=== PATIENT | female | born 1945 | race Caucasian/White ===

== ENCOUNTER → 2016-11-05 | Outpatient (CLI) | payer MEDICARE, BC ==
[~2016-11-05] MED LIST: ASP81TEC PO; CALC1CAP19 PO; DULO60CA6 PO; GLUC-138 PO; MELA1TAB11 PO; PRIM50TA26 PO; SIMV20TA3 PO; SOLI10TA4 PO; TRAZ150T42 PO; TRZ100T PO; ZLP10T PO; ZLP5T PO; [UNRECOGNIZED DRUG - OTHER] PO; calcium + D; glucosamine
--- NOTE | 2016-11-06 19:23 | Diagnostic Imaging Report ---
Bilateral screening mammogram The current study was also evaluated with a Computer Aided Detection (CAD) system. INDICATION: Screening. No current complaints stated on the questionnaire. COMPARISON: 08/20/15. FINDINGS: The breasts are composed of scattered fibroglandular densities. There are occasional benign-appearing calcifications. Allowing for technique and positional differences, no suspicious change is seen. IMPRESSION: No significant change. ACR BI-RADS Category 2: Benign findings. Result letter will be mailed to the patient. Note: At least 10% of breast cancer is not imaged by mammography. Dictated by: Dictated on workstation # [id number]
== END ==
LOC: RAD 11:05
PROVIDERS: ATTEND Family Medicine
DX: Z12.31 Encounter for screening mammogram for malignant neoplasm of breast (principal)
CPT/HCPCS: 77067

== ENCOUNTER → 2017-01-22 | Outpatient (CLI) | payer MEDICARE, BC ==
--- NOTE | 2017-01-22 15:43 | Diagnostic Imaging Report ---
PROCEDURE: MRI right joint upper extremity without contrast. TECHNIQUE: Multiplanar, multisequence non contrast-enhanced MRI of the right upper extremity was accomplished. INDICATION: Right shoulder pain. FINDINGS: There is no os acromiale or Hill-Sachs deformity. There is acromioclavicular joint arthropathy with inferior osteophytes and subchondral edema seen. There is mild fluid distention of the subacromial/subdeltoid bursa. The infraspinatus demonstrates high-grade partial tears with near full-thickness tear seen in its posterior fibers. The supraspinatus tendon demonstrates partial tears posteriorly and a full-thickness tear anteriorly. This is associated with 8 mm retraction. The long head biceps tendon is within its groove. The subscapularis tendon appears grossly unremarkable. The posterior aspect of the superior labrum and the anterior-inferior aspect demonstrates mild irregularity. This however is not a study with intra-articular contrast which would better evaluate the labrum. These could be degenerative related changes. There is a tiny joint effusion. There is the suggestion of mild thinning of the cartilage of the glenohumeral joint. Mild marrow cystic changes in the humeral head near the rotator cuff insertion is seen. There is no significant muscle atrophy around the shoulder. IMPRESSION: 1. High grade tears in the supraspinatus and infraspinatus tendons. There is a full-thickness tear component in the anterior fibers of the supraspinatus with an 8 cm retraction. 2. AC joint osteoarthritis with inferior osteophytes. Dictated by: Dictated on workstation # [id number]
== END ==
LOC: RAD 11:43
PROVIDERS: ATTEND Orthopaedic Surgery
DX: M75.121 Complete rotator cuff tear or rupture of right shoulder, not specified as traumatic (principal); M19.011 Primary osteoarthritis, right shoulder
CPT/HCPCS: 73221

== ENCOUNTER 2017-06-24 12:52 | Outpatient (RCR) | payer MEDICARE, BC | END 2017-06-24 13:50 | disposition home or self-care (01) | PROVIDERS: ATTEND Orthopaedic Surgery | DX: M25.511 Pain in right shoulder (principal); Z98.890 Other specified postprocedural states ==

== ENCOUNTER → 2017-06-27 | Outpatient (CLI) | payer MEDICARE, BC ==
[2017-06-27 14:41] LABS: BASOPHILS # (AUTO) 0.1 10^3/uL (0.0-0.1); BASOPHILS % (AUTO) 1 % (0-10); EOSINOPHILS # (AUTO) 0.5 10^3/uL (0.0-0.3); EOSINOPHILS % (AUTO) 7 % (0-10); HEMATOCRIT 39 % (35-52); HEMOGLOBIN 13.3 G/DL (11.5-16.0); LYMPHOCYTES # (AUTO) 2.4 X 10^3 (1.0-4.0); LYMPHOCYTES % (AUTO) 37 % (12-44); MEAN CORPUSCULAR HEMOGLOBIN 32 PG (25-34); MEAN CORPUSCULAR HGB CONC 34 G/DL (32-36); MEAN CORPUSCULAR VOLUME 95 FL (80-99); MEAN PLATELET VOLUME 9.7 FL (7.4-10.4); MONOCYTES # (AUTO) 0.7 X 10^3 (0.0-1.0); MONOCYTES % (AUTO) 11 % (0-12); NEUTROPHILS # (AUTO) 2.8 X 10^3 (1.8-7.8); NEUTROPHILS % (AUTO) 44 % (42-75); PLATELET COUNT 270 10^3/uL (130-400); RED BLOOD COUNT 4.17 10^6/uL (4.35-5.85); RED CELL DISTRIBUTION WIDTH 13.2 % (10.0-14.5); WHITE BLOOD COUNT 6.4 10^3/uL (4.3-11.0)
[2017-06-27 14:56] LABS: URIC ACID 4.7 MG/DL (2.6-7.2)
[2017-06-27 15:22] LABS: ERYTHROCYTE SEDIMENTATION RATE 10 MM/HR (0-30)
== END ==
LOC: LAB 14:16
PROVIDERS: ATTEND Orthopaedic Surgery
DX: M25.50 Pain in unspecified joint (principal)
CPT/HCPCS: 36415; 84550; 85025; 85652; 86038; 86141; 86200; 86430

== ENCOUNTER → 2017-07-20 | Outpatient (CLI) | payer MEDICARE, BC ==
--- NOTE | 2017-07-20 15:04 | Diagnostic Imaging Report ---
CLINICAL INDICATION: Patient states she has right-sided neck pain. Patient has history of right shoulder surgery. Main complaint is inability to close her right hand ever since shoulder surgery. EXAM: MRI of the cervical spine performed without IV contrast. Sequences include sagittal T1, sagittal T2, sagittal T2 fat-sat, and axial T2. COMPARISON: None. FINDINGS: Limited visualization of the posterior fossa shows no significant abnormality. Cervical spinal cord has normal cord caliber and no abnormal signal. There is no significant paraspinal soft tissue abnormality. There are small degenerative spurs involving the cervical spine. There is a small amount of Modic type II degenerative signal changes involving the C5-C6 level. C1-C2: Unremarkable. C2-C3: There is mild ligamentum flavum buckling and minimal-sized posterior disc bulge. There is a small focal annular tear posteriorly. There is mild central canal narrowing. There is no significant neural foramen narrowing. C3-C4: There is grade 1 anterolisthesis of C3 on C4. There is mild bilateral facet arthropathy. There is at least moderate left neural foramen narrowing and no significant right neural foramen narrowing. There is moderate central canal narrowing. C4-C5: There are small posterior spurs, moderate left facet arthropathy, and mild right facet arthropathy. There is omas-cq-zqpzdciy bilateral neural foramen narrowing. There is moderate central canal narrowing. C5-C6: There are small broad posterior disc spurs with small bilateral uncinate spurs. There is mild loss of intervertebral disc height posteriorly. There is txuadegh-wq-xyyltd central canal narrowing and severe bilateral neural foramen narrowing. C6-C7: There is ligamentum flavum buckling and mild diffuse disc bulge. There is severe central canal narrowing. There is at least moderate bilateral neural foramen narrowing. C7-T1: There is mild bilateral facet arthropathy. There is a small posterior vertebral body disc bulge. There is mild right neural foramen narrowing. There is no significant central spinal canal or left neural foramen narrowing. IMPRESSION: 1: There is multilevel cervical spine degenerative disc disease with severe changes at the C5-C6 and C6-C7 levels. This is described in detail above. 2: There is grade 1 anterolisthesis of C3 on C4. Dictated by: Dictated on workstation # [id number]
== END ==
LOC: RAD 13:51
PROVIDERS: ATTEND Nurse Practitioner Family
DX: M48.03 Spinal stenosis, cervicothoracic region (principal); M43.12 Spondylolisthesis, cervical region; M46.93 Unspecified inflammatory spondylopathy, cervicothoracic region; M50.13 Cervical disc disorder with radiculopathy, cervicothoracic region; Z98.890 Other specified postprocedural states
CPT/HCPCS: 72141

== ENCOUNTER 2017-09-14 14:11 | Outpatient (RCR) | payer MEDICARE, BC | END 2017-10-22 | disposition home or self-care (01) | PROVIDERS: ATTEND Orthopaedic Surgery | DX: M48.02 Spinal stenosis, cervical region (principal) ==

== ENCOUNTER → 2017-11-17 | Outpatient (CLI) | payer MEDICARE, BC ==
--- NOTE | 2017-11-17 18:50 | Diagnostic Imaging Report ---
INDICATION: Routine screening. Comparison is made with prior mammograms from 11/05/2016 and 08/20/2015. 2-D and 3-D bilateral screening mammography was performed with CAD. The current study was also evaluated with a Computer Aided Detection (CAD) system. FINDINGS: Scattered fibronodular densities are identified bilaterally. No dominant mass or malignant-appearing microcalcifications are seen. There are benign-appearing parenchymal and vascular calcifications bilaterally. The axillae are unremarkable. IMPRESSION: No mammographic features suspicious for malignancy are identified. ACR BI-RADS Category 2: Benign findings. Result letter will be mailed to the patient. Note: At least 10% of breast cancer is not imaged by mammography. Dictated by: Dictated on workstation # [id number]
== END ==
LOC: RAD 12:29
PROVIDERS: ATTEND Family Medicine
DX: Z12.31 Encounter for screening mammogram for malignant neoplasm of breast (principal)
CPT/HCPCS: 77067

== ENCOUNTER 2017-11-27 09:36 | Outpatient (RCR) | payer MEDICARE, BC | END 2017-12-31 14:47 | disposition home or self-care (01) | PROVIDERS: ATTEND Neurological Surgery | DX: R29.898 Other symptoms and signs involving the musculoskeletal system (principal) ==

== ENCOUNTER 2018-02-03 12:59 | Outpatient (RCR) | payer MEDICARE, BC | END 2018-03-26 15:29 | disposition home or self-care (01) | PROVIDERS: ATTEND Nurse Practitioner | DX: R53.83 Other fatigue (principal); M54.2 Cervicalgia ==

== ENCOUNTER → 2018-12-04 | Outpatient (CLI) | payer MEDICARE, BC ==
--- NOTE | 2018-12-04 09:41 | Diagnostic Imaging Report ---
PROCEDURE: MRI lumbar spine. TECHNIQUE: Multiplanar, multisequence MRI of the lumbar spine was performed without contrast. INDICATION: Back pain. COMPARISON: MRI lumbar spine without contrast 12/05/2013. FINDINGS: There are 5 lumbar type vertebral bodies for the purposes of this report. Minimal anterolisthesis of L4 on L5. Alignment is otherwise unremarkable. Vertebral body heights preserved. Normal bone marrow signal. No abnormal signal in the conus which terminates at L2. No substantial spinal canal or lateral recess narrowing. No substantial neural foraminal narrowing. Mild facet arthropathy. The visualized abdominal and pelvic contents are unremarkable. S2 Tarlov cyst measures up to 1.1 cm. IMPRESSION: Mild spondylotic changes in the lumbar spine result in no substantial neural impingement. No acute osseous findings. Dictated by: Dictated on workstation # [id number]
== END ==
LOC: RAD 08:21
PROVIDERS: ATTEND Physician Assistant
DX: M47.816 Spondylosis without myelopathy or radiculopathy, lumbar region (principal)
CPT/HCPCS: 72148

== ENCOUNTER 2019-02-21 15:08 | Outpatient (RCR) | payer MEDICARE, BC | END 2019-03-02 | disposition home or self-care (01) | LOC: CR3 15:08 | PROVIDERS: ATTEND Family Medicine | DX: Z29.8 Encounter for other specified prophylactic measures (principal) ==

== ENCOUNTER 2019-04-21 13:36 | Outpatient (RCR) | payer MEDICARE, BC | END 2019-04-22 08:27 | disposition home or self-care (01) | PROVIDERS: ATTEND Physical Medicine & Rehabilitation | DX: M54.16 Radiculopathy, lumbar region (principal) ==

== ENCOUNTER 2019-05-23 13:19 | Outpatient (RCR) | payer MEDICARE, BC | END 2019-05-29 | disposition home or self-care (01) | LOC: CR3 13:19 | PROVIDERS: ATTEND Family Medicine | DX: Z29.8 Encounter for other specified prophylactic measures (principal) ==

== ENCOUNTER 2019-06-02 05:37 | Outpatient (CLI) | payer MEDICARE, BC ==
[~2019-06-02] VITALS: Ht 167 cm; Wt 77.2 kg
[2019-06-02] MEDS ORDERED: VIT1CAPS44 PO (10:28)
[2019-06-02] MEDS ORDERED: ASPI-586 PO (10:40)
[2019-06-02] MEDS ORDERED: OLME5TAB3 PO (10:40)
[2019-06-02] MEDS ORDERED: QUET50TA55 PO (10:40)
[2019-06-02] MEDS ORDERED: PRIM250T33 PO (10:40)
[2019-06-02] MEDS ORDERED: MULT-1029 PO (10:40)
[2019-06-02] MEDS ORDERED: TOLT4CAP13 PO (10:40)
[2019-06-02] MEDS ORDERED: GLUC1CAP37 PO (10:40)
[2019-06-02] MEDS ORDERED: DESM0.2T29 PO (10:40)
[2019-06-02] MEDS ORDERED: SERT50TA9 PO (10:40)
[2019-06-02] MEDS ORDERED: TRAZ-190 PO (10:40)
[2019-06-02] MEDS ORDERED: MAGN400T39 PO (10:40)
[2019-06-02] MEDS ORDERED: OMG1KC PO (10:40)
== END 2019-06-02 10:42 | disposition home or self-care (01) ==
LOC: PREOP 05:37
PROVIDERS: ATTEND Pediatrics
DX: Z01.818 Encounter for other preprocedural examination (principal)

== ENCOUNTER 2019-06-16 07:44 | Day surgery (SDC) | payer MEDICARE, BC ==
[2019-06-16] VITALS (14 sets, daily range): BP systolic 114–143; BP diastolic 57–77
[~2019-06-16] VITALS: Ht 167 cm; Wt 77.2 kg
[~2019-06-16 07:44] MED LIST changes: +ASPI-586 PO; +DESM0.2T29 PO; +GLUC1CAP37 PO; +MAGN400T39 PO; +MULT-1029 PO; +NS IV 500 ML 500 ML ONE; +OLME5TAB3 PO; +OMG1KC PO; +PRIM250T33 PO; +QUET50TA55 PO; +SERT50TA9 PO; +TOLT4CAP13 PO; +TRAZ-190 PO; +VIT1CAPS44 PO
[2019-06-16] MEDS ORDERED: NS IV 500 ML 500 ML IV PRN (07:51)
[2019-06-16] MEDS ORDERED: fentaNYL INJECTION 100 MCG/2 ML AMP IVP ONE (08:00)
[2019-06-16] MEDS ORDERED: MIDAZOLAM 5 MG/5 ML (VERSED) VIAL IV PRN (08:00)
[2019-06-16] MEDS ORDERED: fentaNYL INJECTION 100 MCG/2 ML AMP ONE (08:17)
[2019-06-16] MEDS ORDERED: MIDAZOLAM 5 MG/5 ML (VERSED) VIAL ONE (08:17)
--- NOTE | 2019-06-16 08:23 | Progress Note-Pre Operative ---
Pre-Operative Progress Note H&P Reviewed The H&P was reviewed, patient examined and no changes noted. Date Seen by Provider: Jun 16, 2019 Time Seen by Provider: 08:22 Date H&P Reviewed: Jun 16, 2019 Time H&P Reviewed: 08:22 Pre-Operative Diagnosis: NORI Valencia MD Jun 16, 2019 08:23
--- NOTE | 2019-06-16 08:45 | Endoscopy Procedure Report ---
Colonoscopy Procedure Performed: Colonoscopy Pre-Operative Diagnosis: screen Post-Operative Diagnosis: screen Small Machine Bindery Operator: None. Indications for Procedure: screen Procedure Details: Informed consent was obtained, the risks, benefits and alternatives to the procedure were explained to the patient. The Sherly Mcclellan, a 74 yr old female, was brought to to surgery area, sedated with 2 mg of Versed and 100 ug of fentanyl. She was placed in the left lateral decubitus position. Under direct visualization the scope was passed easily to the cecum. Cecum is identified by landmarks. Scope was carefully withdrawn. Findings: Ascending Colon: nonenon Transverse Colon: e Descending/Sigmoid: none Rectum: none Estimated Blood Loss: 0 mL Specimens: none Complications: None; patient tolerated the procedure well. Final Diagnosis: large amounts retianed liquid stool so visulaized approx 75 % of colonic surface with no visible polyps or masses NORI GRANADOS MD Jun 16, 2019 08:45
== END 2019-06-16 09:40 | disposition home or self-care (01) ==
LOC: ENDO 07:44
PROVIDERS: ATTEND Pediatrics
DX: Z12.11 Encounter for screening for malignant neoplasm of colon (principal); K59.09 Other constipation; I10 Essential (primary) hypertension; E78.00 Pure hypercholesterolemia, unspecified; G89.29 Other chronic pain; M54.9 Dorsalgia, unspecified; M19.90 Unspecified osteoarthritis, unspecified site; M79.10 Myalgia, unspecified site; F51.01 Primary insomnia; F32.4 Major depressive disorder, single episode, in partial remission; F41.9 Anxiety disorder, unspecified

== ENCOUNTER 2019-06-20 16:06 | Outpatient (RCR) | payer MEDICARE, BC ==
[~2019-06-20 16:06] MED LIST changes: -NS IV 500 ML 500 ML ONE
== END 2019-06-29 | disposition home or self-care (01) ==
LOC: CR3 16:06
PROVIDERS: ATTEND Family Medicine
DX: Z29.8 Encounter for other specified prophylactic measures (principal)

== ENCOUNTER 2019-08-22 13:36 | Outpatient (RCR) | payer MEDICARE, BC ==
[~2019-08-22 13:36] MED LIST changes: -TRAZ-190 PO; +TRAZ-227 PO
== END 2019-08-31 | disposition home or self-care (01) ==
LOC: CR3 13:36
PROVIDERS: ATTEND Family Medicine
DX: Z29.8 Encounter for other specified prophylactic measures (principal)

== ENCOUNTER → 2020-01-16 | Outpatient (CLI) | payer MEDICARE, BC ==
--- NOTE | 2020-01-16 13:09 | Diagnostic Imaging Report ---
INDICATION: Routine screening. Comparison is made with prior mammogram from 12/20/2018 and 11/17/2017. 2-D and 3-D bilateral screening mammography was performed with CAD. Scattered fibroglandular densities are identified bilaterally. There are occasional benign parenchymal and basilar calculations bilaterally. There is a density in the upper aspect of the right breast on the MLO view posterior depth. This may be laterally located on the cc view. Additional views are recommended. Left breast is unremarkable. No suspicious microcalcifications are seen. Axillae are unremarkable. IMPRESSION: BI-RADS Category 0 Right breast density. Additional views are recommended for further evaluation. ACR BI-RADS Category 0: Incomplete. (Needs additional imaging evaluation). Result letter will be mailed to the patient. Note: At least 10% of breast cancer is not imaged by mammography. Dictated by: Dictated on workstation # [id number]
== END ==
LOC: RAD 10:49
PROVIDERS: ATTEND Pediatrics
DX: Z12.31 Encounter for screening mammogram for malignant neoplasm of breast (principal); R92.8 Other abnormal and inconclusive findings on diagnostic imaging of breast
CPT/HCPCS: 77063; 77067

== ENCOUNTER 2020-02-17 11:18 | Outpatient (RCR) | payer MEDICARE, BC | END 2020-02-26 | disposition home or self-care (01) | PROVIDERS: ATTEND Pediatrics | DX: S32.119D Unspecified Zone I fracture of sacrum, subsequent encounter for fracture with routine healing (principal); M79.606 Pain in leg, unspecified; M54.30 Sciatica, unspecified side ==

== ENCOUNTER 2020-04-20 13:36 | Outpatient (RCR) | payer MEDICARE, BC | END 2020-06-13 | disposition home or self-care (01) | PROVIDERS: ATTEND Pediatrics | DX: S32.119D Unspecified Zone I fracture of sacrum, subsequent encounter for fracture with routine healing (principal); M79.606 Pain in leg, unspecified; M54.30 Sciatica, unspecified side ==

== ENCOUNTER 2020-06-25 15:21 | Outpatient (RCR) | payer MEDICARE, BC | END 2020-07-11 11:57 | disposition home or self-care (01) | PROVIDERS: ATTEND Pediatrics | DX: S32.10XA Unspecified fracture of sacrum, initial encounter for closed fracture (principal); W17.89XA Other fall from one level to another, initial encounter ==

== ENCOUNTER 2020-09-25 13:00 | Outpatient (CLI) | payer MEDICARE, BC ==
[~2020-09-25] VITALS: Ht 167.7 cm; Wt 86.4 kg
[~2020-09-25 13:00] MED LIST changes: +QUET50TA22 PO; -QUET50TA55 PO; +SERT-413 PO; -SERT50TA9 PO
[2020-09-25] MEDS ORDERED: AMLO-250 PO (14:32)
[2020-09-25] MEDS ORDERED: ASPI-999 PO (14:32)
[2020-09-25] MEDS ORDERED: SIMV20TA26 PO (14:32)
== END 2020-09-25 14:35 | disposition home or self-care (01) ==
LOC: PREOP 13:00
PROVIDERS: ATTEND Specialist
DX: Z01.818 Encounter for other preprocedural examination (principal)

== ENCOUNTER 2020-09-28 09:45 | Day surgery (SDC) | payer MEDICARE, BC ==
[~2020-09-28] VITALS: Ht 167 cm; Wt 86.4 kg
[~2020-09-28 09:45] MED LIST changes: +AMLO-250 PO; +ASPI-999 PO; +SIMV20TA26 PO
[2020-09-28] MEDS ORDERED: POVIDONE (BETADINE) OPHTH SOLN 5% 30 ML OP ONE (10:00)
[2020-09-28] MEDS ORDERED: TIMOLOL MALEATE 0.5% 5 ML (TIMOPTIC) BTL OU PRN (10:00)
[2020-09-28] MEDS ORDERED: LIDOCAINE PF 1% 2 ML VIAL IR PRN (10:00)
[2020-09-28] MEDS ORDERED: MOXIFLOXACIN OPHTH SOLN 5 MG/ML 0.3 ML SYRINGE OP ONE (10:00)
[2020-09-28 10:05] VITALS: BP 139/64
[2020-09-28] MEDS: TETRACAINE 0.5% OPHTH SOLN 4 ML BTL (SINGLE DOSE ONLY) OU PRN ×4 (10:07→10:33)
[2020-09-28] MEDS: PHENYLEPHRINE 10% OPHTH (NEO-SYN) 5 ML BTL OU SCH ×3 (10:20→10:34)
[2020-09-28] MEDS: TROPICAMIDE 1% OPH SOLN (MYDRIACYL) 15 ML BTL OP SCH ×3 (10:20→10:34)
--- NOTE | 2020-09-28 10:48 | Ophthalmologist Pre-Op Note ---
Pre-Operative Progress Note H&P Reviewed The H&P was reviewed, patient examined and no changes noted. Date H&P Reviewed: Sep 28, 2020 Time H&P Reviewed: 10:48 Pre-Op Dx Cataract, Left Eye JOSE A ALVAREZ MD Sep 28, 2020 10:48
[2020-09-28] MEDS ORDERED: MIDAZOLAM 2 MG/2 ML (VERSED) VIAL ONE (11:01)
--- NOTE | 2020-09-28 11:12 | Ophthalmology Operative Report ---
Cataract removal/placement IOL PREOPERATIVE DIAGNOSIS: Cataract Left Eye POSTOPERATIVE DIAGNOSIS: Cataract Left Eye PROCEDURE: Cataract removal and placement of posterior chamber implant, left eye SURGEON: Daniele Alvarez ANESTHESIA: Topical with sedation COMPLICATIONS: None ESTIMATED BLOOD LOSS: Minimal DESCRIPTION OF PROCEDURE: After proper informed consent was obtained, the patient, a 75 female, was taken to the Operating Room and the left eye was anesthetized with tetracaine. The left eye was then prepped and draped in the usual manner. A wire lid speculum was placed. A paracentesis was made at the left hand position. Preservative free lidocaine was injected into the anterior chamber followed by viscoelastic. A clear corneal incision was made in the temporal position. A capsulorrhexis was preformed and the central nuclear and cortical material were removed. The posterior capsule was polished and an Adam 20.5 AU00T0 was placed into the capsular bag. The residual viscoelastic was aspirated and balanced saline solution was injected into the anterior chamber. Moxifloxacin was injected into the anterior chamber. The wound was checked and found to be water tight. The patient tolerated the procedure well without complications. DANIELE ALVAREZ MD Sep 28, 2020 11:12
[2020-09-28 11:28] VITALS: BP 137/56
[2020-09-28] MEDS ORDERED: acetaZOLAMIDE ER 500 MG CAP (DIAMOX SEQUELS) PO ONE (11:30)
--- NOTE | 2020-09-28 11:43 | Anesthesia-General Post-Op ---
MAC Patient Condition Mental Status/LOC: Same as Preop Cardiovascular: Satisfactory Nausea/Vomiting: Absent Respiratory: Satisfactory Pain: Controlled Complications: Absent Post Op Complications Complications None Follow Up Care/Instructions Patient Instructions None needed. Anesthesiology Discharge Order Discharge Order Patient is doing well, no complaints, stable vital signs, no apparent adverse anesthesia problems. No complications reported per nursing. NICK QUEZADA CRNA Sep 28, 2020 11:42
== END 2020-09-28 11:29 | disposition home or self-care (01) ==
LOC: SDC 09:45
PROVIDERS: ATTEND Specialist
DX: H25.12 Age-related nuclear cataract, left eye (principal); I10 Essential (primary) hypertension; M06.9 Rheumatoid arthritis, unspecified; G47.00 Insomnia, unspecified; Z79.899 Other long term (current) drug therapy
CPT/HCPCS: 66984; V2632

== ENCOUNTER 2020-10-12 10:23 | Day surgery (SDC) | payer MEDICARE, BC ==
[~2020-10-12] VITALS: Ht 167 cm; Wt 86.4 kg
[2020-10-12] MEDS ORDERED: TIMOLOL MALEATE 0.5% 5 ML (TIMOPTIC) BTL OU PRN (10:30)
[2020-10-12] MEDS ORDERED: LIDOCAINE PF 1% 2 ML VIAL IR PRN (10:30)
[2020-10-12] MEDS ORDERED: MOXIFLOXACIN OPHTH SOLN 5 MG/ML 0.3 ML SYRINGE OP ONE (10:30)
[2020-10-12] MEDS ORDERED: POVIDONE (BETADINE) OPHTH SOLN 5% 30 ML OP ONE (10:30)
[2020-10-12 10:32] VITALS: BP 114/67
[2020-10-12] MEDS: TETRACAINE 0.5% OPHTH SOLN 4 ML BTL (SINGLE DOSE ONLY) OU PRN ×4 (10:53→11:10)
[2020-10-12] MEDS: TROPICAMIDE 1% OPH SOLN (MYDRIACYL) 15 ML BTL OP SCH ×3 (10:59→11:10)
[2020-10-12] MEDS: PHENYLEPHRINE 10% OPHTH (NEO-SYN) 5 ML BTL OU SCH ×3 (11:00→11:10)
--- NOTE | 2020-10-12 11:01 | Ophthalmologist Pre-Op Note ---
Pre-Operative Progress Note H&P Reviewed The H&P was reviewed, patient examined and no changes noted. Date H&P Reviewed: Oct 12, 2020 Time H&P Reviewed: 11:01 Pre-Op Dx Cataract, Right Eye JOSE A ALVAREZ MD Oct 12, 2020 11:01
[2020-10-12] MEDS ORDERED: MIDAZOLAM 2 MG/2 ML (VERSED) VIAL ONE (11:21)
--- NOTE | 2020-10-12 11:53 | Ophthalmology Operative Report ---
Cataract removal/placement IOL PREOPERATIVE DIAGNOSIS: Cataract Right Eye POSTOPERATIVE DIAGNOSIS: Cataract Right Eye PROCEDURE: Cataract removal and placement of posterior chamber implant, right eye SURGEON: Daniele Alvarez ANESTHESIA: Topical with sedation COMPLICATIONS: None ESTIMATED BLOOD LOSS: Minimal DESCRIPTION OF PROCEDURE: After proper informed consent was obtained, the patient, a 75 female, was taken to the Operating Room and the right eye was anesthetized with tetracaine. The right eye was then prepped and draped in the usual manner. A wire lid speculum was placed. A paracentesis was made at the left hand position. Preservative free lidocaine was injected into the anterior chamber followed by viscoelastic. A clear corneal incision was made in the temporal position. A capsulorrhexis was preformed and the central nuclear and cortical material were removed. The posterior capsule was polished and Adam 21.0 AU00T0 IOL was placed into the capsular bag. The residual viscoelastic was aspirated and balanced saline solution was injected into the anterior chamber. Moxifloxacin was injected into the anterior chamber. The wound was checked and found to be water tight. The patient tolerated the procedure well without complications. DANIELE ALVAREZ MD Oct 12, 2020 11:53
[2020-10-12] MEDS ORDERED: acetaZOLAMIDE ER 500 MG CAP (DIAMOX SEQUELS) PO ONE (12:00)
[2020-10-12 12:15] VITALS: BP 146/63
--- NOTE | 2020-10-12 12:22 | Anesthesia-General Post-Op ---
MAC Patient Condition Mental Status/LOC: Same as Preop Cardiovascular: Satisfactory Nausea/Vomiting: Absent Respiratory: Satisfactory Pain: Controlled Complications: Absent Post Op Complications Complications None Follow Up Care/Instructions Patient Instructions None needed. Anesthesiology Discharge Order Discharge Order Patient is doing well, no complaints, stable vital signs, no apparent adverse anesthesia problems. No complications reported per nursing. NICK QUEZADA CRNA Oct 12, 2020 12:22
== END 2020-10-12 12:05 | disposition home or self-care (01) ==
LOC: SDC 10:23
PROVIDERS: ATTEND Specialist
DX: H25.11 Age-related nuclear cataract, right eye (principal); I10 Essential (primary) hypertension; E78.5 Hyperlipidemia, unspecified; E66.9 Obesity, unspecified; H40.9 Unspecified glaucoma; J30.9 Allergic rhinitis, unspecified; M19.90 Unspecified osteoarthritis, unspecified site; G47.00 Insomnia, unspecified; Z79.82 Long term (current) use of aspirin; Z79.899 Other long term (current) drug therapy; Z68.31 Body mass index [BMI] 31.0-31.9, adult; Z83.3 Family history of diabetes mellitus
CPT/HCPCS: 66984; V2632

== ENCOUNTER → 2020-10-29 | Outpatient (RCR) | payer MEDICARE, BC | END | disposition home or self-care (01) | PROVIDERS: ATTEND Physician Assistant Medical | DX: S32.59 Other specified fracture of pubis (principal); Z98.890 Other specified postprocedural states ==

== ENCOUNTER 2021-01-02 15:35 | Outpatient (RCR) | payer MEDICARE, BC | END 2021-01-02 16:40 | disposition home or self-care (01) | PROVIDERS: ATTEND Physician Assistant Medical | DX: S32.59 Other specified fracture of pubis (principal); Z96.698 Presence of other orthopedic joint implants ==

== ENCOUNTER → 2021-04-12 | Outpatient (CLI) | payer MEDICARE, BC ==
[~2021-04-12] MED LIST changes: -QUET50TA22 PO; +QUET50TA23 PO; -TOLT4CAP13 PO; +TOLT4CAP26 PO
--- NOTE | 2021-04-12 14:10 | Diagnostic Imaging Report ---
INDICATION: Routine screening. Comparison is made with prior mammogram 01/16/2020 and 12/20/2018. 2-D and 3-D bilateral screening mammography was performed with CAD. Scattered fibroglandular densities are identified bilaterally. No mass or malignant-appearing microcalcifications are identified. There are occasional benign calcification is present. The axillae are unremarkable. IMPRESSION: BI-RADS Category 2 No mammographic features suspicious for malignancy are identified. ACR BI-RADS Category 2: Benign findings. Result letter will be mailed to the patient. Note: At least 10% of breast cancer is not imaged by mammography. Dictated by: Dictated on workstation # [id number]
== END ==
LOC: RAD 11:30
PROVIDERS: ATTEND Pediatrics
DX: Z12.31 Encounter for screening mammogram for malignant neoplasm of breast (principal)
CPT/HCPCS: 77063; 77067

== ENCOUNTER 2021-06-14 09:37 | Outpatient (RCR) | payer MEDICARE, BC | END 2021-06-28 | disposition home or self-care (01) | PROVIDERS: ATTEND Orthopaedic Surgery | DX: M76.891 Other specified enthesopathies of right lower limb, excluding foot (principal) ==

== ENCOUNTER 2021-07-26 13:04 | Outpatient (RCR) | payer MEDICARE, BC | END 2021-07-29 | disposition home or self-care (01) | PROVIDERS: ATTEND Orthopaedic Surgery | DX: M76.891 Other specified enthesopathies of right lower limb, excluding foot (principal) ==

== ENCOUNTER 2021-08-23 14:53 | Outpatient (RCR) | payer MEDICARE, BC | END 2021-08-26 | disposition home or self-care (01) | PROVIDERS: ATTEND Orthopaedic Surgery | DX: M76.891 Other specified enthesopathies of right lower limb, excluding foot (principal) ==

== ENCOUNTER 2021-08-29 14:10 | Outpatient (RCR) | payer MEDICARE, BC | END 2021-09-26 | disposition home or self-care (01) | PROVIDERS: ATTEND Orthopaedic Surgery | DX: M76.891 Other specified enthesopathies of right lower limb, excluding foot (principal) ==

== ENCOUNTER → 2022-04-14 | Outpatient (CLI) | payer MEDICARE, BC ==
[~2022-04-14] MED LIST changes: -OLME5TAB3 PO; +OLME5TAB32 PO
--- NOTE | 2022-04-15 13:38 | Diagnostic Imaging Report ---
INDICATION: Routine screening. COMPARISON: 04/12/2021 and 01/16/2020. TECHNIQUE: 2D and 3D bilateral screening mammography was performed with CAD. FINDINGS: Scattered fibroglandular densities are identified bilaterally. The parenchymal pattern is stable. No mass or malignant-appearing microcalcifications are seen. The axillae are unremarkable. IMPRESSION: No mammographic features suspicious for malignancy are identified. ACR BI-RADS Category 1: Negative. Result letter will be mailed to the patient. Note: At least 10% of breast cancer is not imaged by mammography. Dictated by: Dictated on workstation # [id number]
== END ==
LOC: RAD 15:00
PROVIDERS: ATTEND Pediatrics
DX: Z12.31 Encounter for screening mammogram for malignant neoplasm of breast (principal)
CPT/HCPCS: 77063; 77067

== ENCOUNTER 2022-05-27 10:29 | Outpatient (RCR) | payer MEDICARE, BC | END 2022-05-28 | disposition home or self-care (01) | PROVIDERS: ATTEND Pediatrics | DX: M54.2 Cervicalgia (principal) ==

== ENCOUNTER 2022-06-02 13:00 | Outpatient (RCR) | payer MEDICARE, BC | END 2022-06-28 | disposition home or self-care (01) | PROVIDERS: ATTEND Pediatrics | DX: M54.2 Cervicalgia (principal) ==